=== PATIENT | male | born 1955 | race Caucasian/White ===

== ENCOUNTER → 2019-04-07 | Outpatient (CLI) | payer OTHER | END | disposition home or self-care (01) | LOC: CARD 11:35 | PROVIDERS: ATTEND Orthopaedic Surgery | DX: J45.909 Unspecified asthma, uncomplicated (principal); I51.7 Cardiomegaly; I49.9 Cardiac arrhythmia, unspecified; R06.00 Dyspnea, unspecified | CPT/HCPCS: 71046; 94060 ==